=== PATIENT | male | born 1955 | race Caucasian/White ===

== ENCOUNTER 2024-03-06 13:50 | Emergency (ER) | payer OTHER, SELFPAY ==
[2024-03-06] VITALS (13 sets, daily range): BP systolic 129–185; BP diastolic 82–119; BMI 27.4
--- NOTE | 2024-03-06 15:38 | ED.GENMED ---
History of Present Illness
General
Chief Complaint: Blood Pressure Problem
Time Seen by Provider: 03/06/24 15:08
History of Present Illness
History of Present Illness:
69-year-old male with history of prior stroke and hypertension presents to the emergency department for evaluation of abnormal blood pressures. The patient was admitted to the hospital February 28 to due to a hypertensive urgency. In the
emergency department his blood pressure was noted to be greater than 200/130, he was treated with IV antihypertensives. During that time he was noted to have elevated troponin and the cardiology service consulted on the patient. He underwent a
stress test that was abnormal with an ejection fraction 51%, as well as an echocardiogram was grossly unremarkable. He then underwent a subsequent cardiac catheterization via right radial approach that found multivessel disease and was apparently
recommended to consult cardiothoracic surgery for possible surgical intervention however record review suggest that the patient declined this. At the time of discharge patient had 30 mL grams, hydrochlorothiazide 12.5 mg added to his regimen and
his carvedilol was decreased from 25 to 12.5 mg. Discharge summary from [facility] indicates that in addition to these 3 antihypertensives the patient is also taking 50 mg of losartan twice daily, 30 mg of nifedipine ER once daily. He
reportedly took the medications as prescribed for 2 days after hospital discharge but was noted to be markedly hypotensive in the 70s at home as well as very fatigued. No blood pressure medicines were given at home today. Patient offers no
complaints at this time.
Results from [facility] provided by fax scanned into the chart for completeness
Past History
Past History
ED Past Medical History: CVA and HTN
Social History
Tobacco: Non-smoker
Alcohol: None
Drug: None
Personal:
Living: with family
Review of Systems
Review of Systems
Allergies reviewed?: Yes
All Other Systems: ROS reviewed and negative except as documented in HPI and ROS
Phy Exam
Physical Exam
Physical Exam:
GEN: Well appearing, NAD, WDWN
HEENT: Oral mucosa moist, no scleral icterus
Cardiac: Regular rate and rhythm, no murmur
Lung: No respiratory distress, no tachypnea, lungs clear to auscultation bilaterally
MSK: No gross deformity or injuries
Skin: Good color, no pallor or jaundice, no rashes
Neuro: AO x3, moves all extremities freely
Psych: Calm, cooperative
Course
Orders/Labs/Results
Orders:
Orders
03/06/24 14:13
ECG [Electrocardiogram (*1)] Urgent
Reason for Study: Hypertension, Benign
EKG- Treatment ONCE
03/06/24 15:49
Complete Blood Count/No Diff Urgent
03/06/24 16:09
Carvedilol [Coreg] 12.5 mg PO NOW STA
Losartan [Cozaar] 50 mg PO NOW STA
03/06/24 16:20
ISOSORBIDE MONOnitrate ER [Imdur (Extended Release)] 30 mg PO NOW STA
03/06/24 16:33
Comprehensive Metabolic Panel Urgent
Abnormal Lab Results
03/06/24 03/06/24
15:49 16:33
MPV 11.4 H fL
(7.4-10.4)
BUN 29 H mg/dl
(9-20)
Glucose 147 H mg/dl
(70-99)
03/06/24 15:49
03/06/24 16:33
Vital Signs
Initial and Last Documented VS:
Initial Vital Signs
Temp Pulse Resp BP Pulse Ox
98.4 F 77 18 167/109 96
03/06/24 14:06 03/06/24 14:06 03/06/24 14:06 03/06/24 14:06 03/06/24 14:06
Last Documented Vital Signs
Temp Pulse Resp BP Pulse Ox
98.4 F 69 26 129/88 95
03/06/24 14:06 03/06/24 18:45 03/06/24 18:45 03/06/24 18:40 03/06/24 15:47
MDM/Problems Addressed
MDM/Problems Addressed:
69 yo male presents with blood pressure lability. He is hypertensive today on the basis of not taking his antihypertensives as prescribed. After recent hospital discharge she was supposed to be on 5 antihypertensives but was noted by his family to
have hypotension after taking all the meds. I reviewed records extensively provided by [facility]. It appears she was recommended to seek CT surgical evaluation due to multivessel coronary artery patient declined. At this time he
remains however given that he has no chest pain I do not see that there is any indication for admission for surgical evaluation. Regards to his blood pressure control he is asymptomatic evidence of hypertensive urgency. We will downtrend his
antihypertensives to avoid hypotension, I have recommended holding 12.5 mg of hydrochlorothiazide and decreasing his losartan to once daily as I feel the carvedilol and isosorbide will be beneficial given his known CAD. Outpatient CT surgical
follow-up is advised to review records from [facility] however strongly encouraged him to return to the emergency department with any ongoing chest pain
Comment
Comment:
EKG independently interpreted by me shows a normal sinus rhythm, lateral T wave inversions comparable to EKG from July of the same year. No acute ischemic changes
*Critical Care Note
Total Time (30-74mins, 75-104mins- exclusive of procedures): Not Applicable
ED Attending Note
-
Portions of this chart may have been created with voice recognition software.� Occasional wrong word or��sound alike� substitutions may have occurred due to the inherent limitations of voice recognition software.
Discharge Plan
Departure
Patient Disposition: Home (Routine Discharge)
Date of Disposition: 03/06/24
Time of Disposition: 18:12
Patient with high blood pressure during this ER visit?: No
Discharge Problem:
Elevated blood pressure reading
Instructions: High Blood Pressure (DC)
Prescriptions:
No Action
atorvastatin 80 mg tablet
80 mg PO HS
nitroglycerin 0.3 mg tablet, sublingual
0.3 mg sublingual [id number] PRN (Reason: chest pain)
levothyroxine 25 mcg tablet
25 mcg PO DAILY
tamsulosin 0.4 mg capsule
0.4 mg PO HS
ezetimibe 10 mg tablet
10 mg PO DAILY
nifedipine 30 mg Tablet Extended Release
30 mg PO DAILY Qty: 30 0RF
carvedilol 25 mg tablet
25 mg PO BID Qty: 60 0RF
Referrals:
Miguel Carmona MD [Family Provider] -
Amanuel Ibarra MD [Active] - Call in 1-3 days for appt
Activity Restrictions/Additional Instructions:
The medications you should be taking for blood pressure, based on your recent hospital discharge, are as follows:
Hydrochlorothiazide 12.5mg daily
Carvedilol 12.5mg daily
Nifedipine 30mg daily
Losartan 50mg twice daily
Isosorbide 30mg daily
Due to your heart problems, the isosorbide and carvedilol are very important
I am recommending you stop the hydrochlorothiazide and decreasing your losartan to ONCE DAILY until you follow up with your heart doctor, kidney doctor and/or primary care doctor
Please follow up with our cardiothoracic surgery team to discuss your heart catheterization results and possible surgery
If you develop chest pain, return to the ER immediately
Interventions
Interventions:
*Risk Screen - Suicide Last Done: 03/06/24 14:06
*General Assessment Last Done: 03/06/24 14:06
*Neglect/Abuse Screening Last Done: 03/06/24 14:06
ED- Fall Risk Assessment Last Done: 03/06/24 19:02
*ED COVID-19 Vaccine History Last Done: 03/06/24 15:46
*Nursing Disposition Last Done: 03/06/24 19:02
ED- Cardiac Assessment Last Done: 03/06/24 15:47
ED- Neurological Assessment Last Done: 03/06/24 15:47
ED- Pulmonary Assessment Last Done: 03/06/24 15:47
Discharge Date and Time
Print Language: MAURITANIAN
[2024-03-06 16:01] LABS: Hematocrit 40.8 % (39.0-52.0); Hemoglobin 14.1 g/dL (13.0-18.0); Mean Corp Hgb Conc. 34.6 g/dL (33.0-37.0); Mean Corpuscular Hgb 27.9 pg (27.0-31.0); Mean Corpuscular Volume 80.6 fL (80.0-94.0); Mean Platelet Volume 11.4 fL (7.4-10.4); Platelet Count 242 10^3/uL (130-400); Red Blood Cell Count 5.06 10^6/uL (4.70-6.10); Red Cell Dist. Width 14.4 % (11.5-14.5); White Blood Cell Count 7.5 10^3/uL (4.8-10.8)
[2024-03-06] MEDS: COZAAR 50 MG PO (16:19)
[2024-03-06] MEDS: COREG 12.5 MG PO (16:20)
[2024-03-06] MEDS: IMDUR (EXTENDED RELEASE) 30 MG PO (16:29)
[2024-03-06 17:19] LABS: ALT (SGPT) 15 U/L (0-50); AST (SGOT) 20 U/L (17-59); Albumin 4.2 g/dl (3.5-5.0); Alkaline Phosphatase 64 U/L (38-126); Blood Urea Nitrogen 29 mg/dl (9-20); Calcium 9.1 mg/dl (8.4-10.2); Carbon Dioxide 29 mmol/L (22-30); Chloride 100 mmol/L (98-107); Estimated Creatinine Clearance 65 ml/min; Glucose 147 mg/dl (70-99); Potassium 3.6 mmol/L (3.5-5.1); Sodium 137 mmol/L (135-145); Total Bilirubin 0.5 mg/dl (0.2-1.3); eGFR > 60.00
== END 2024-03-06 19:02 | disposition home or self-care (01) ==
LOC: EMR 13:50
PROVIDERS: Physician Assistant; EMERGENCY PHYSICIAN Emergency Medicine; FAMILY PHYSICIAN Internal Medicine
DX: I10 Essential (primary) hypertension (principal); I25.10 Atherosclerotic heart disease of native coronary artery without angina pectoris; Z79.899 Other long term (current) drug therapy; Z86.73 Personal history of transient ischemic attack (TIA), and cerebral infarction without residual deficits
CPT/HCPCS: 99283; 80053; 85027; 93005

== ENCOUNTER 2024-04-13 17:45 | Emergency (ER) | payer OTHER, SELFPAY ==
[2024-04-13 17:47] VITALS: BP 139/95
[2024-04-13 19:18] VITALS: BP 128/73
--- NOTE | 2024-04-13 19:35 | ED.GENMED ---
History of Present Illness
General
Chief Complaint: Fall
Source: patient and family (Son)
Exam Limitations: none
Time Seen by Provider: 04/13/24 19:26
Nursing documentation reviewed up to this point in time: agreed with
History of Present Illness
History of Present Illness:
69-year-old male with a past medical history of hypertension, hyperlipidemia, prior stroke who presents to the emergency room with his son for evaluation after a fall. Patient was getting out of bed last night to go to the bathroom and fell, landed
next to his bed. Unclear whether there was head strike but patient denies loss of consciousness. Mainly landed on his left ribs/flank. He has had bruising and pain in the left rib/flank since and son brought him into the emergency room to be
evaluated. He denies any headache or neck pain. Denies any shortness of breath. Denies any abdominal pain. Apparently complained of some mild left leg pain in triage but specifically denied this when asked by me. He does complain of some very
mild pain in the left wrist. He denies any other complaints. He is on aspirin but no other blood thinners on review of his medication list.
Past History
Past History
ED Past Medical History: CVA and HTN
Social History
Tobacco: Non-smoker
Alcohol: None
Drug: None
Personal:
Living: with family
Review of Systems
Review of Systems
All Other Systems: ROS reviewed and negative except as documented in HPI and ROS
Respiratory: Denies trouble breathing
Cardiac: Reports chest pain (Rib pain)
ABD/GI: Denies abdominal pain, nausea or vomiting
: Reports flank pain
Musculoskeletal: Reports joint pain; Denies neck pain
Neurological: Denies dizzy, headache, weakness or numbness
Phy Exam
Physical Exam
Physical Exam:
General: Awake, alert, oriented x3 with a GCS of 15; no acute distress
Head: Normocephalic, atraumatic
Eyes: Conjunctiva normal, pupils equal round and reactive to light bilaterally
Throat: Airway intact, handling secretions
Neck: Trachea midline, no cervical spine tenderness
Back: No tenderness in the midline thoracic or lumbar spine; large area of ecchymosis in the left flank right around the costovertebral angle which is tender to the touch
Lungs: Clear to auscultation bilaterally, no wheezing, rales, rhonchi
Heart: Regular rate; left posterior lateral rib tenderness in the area of flank bruising
Abd: Soft, non distended, nontender with no abdominal bruising
Neuro: No gross deficits
Skin: Bruise on the flank, no abrasions or lacerations noted
Extremities: Atraumatic, no snuffbox tenderness in the left wrist, mild tenderness of the dorsum of the distal radius but full range of motion of the wrist with minimal pain; no left elbow or shoulder tenderness and full range of motion in these
joints; right upper extremity and bilateral lower extremities atraumatic and full range of motion with no pain; good pulses in all extremities specifically strong left radial pulse
Scores
Heart Failure Risk
Heart Failure Risk Score: Not Applicable
Heart Score for Chest Pain Patients
STEMI patient?: Not applicable
Withdrawal Assessment of Alcohol
Withdrawal Assessment Completed?: Not applicable
Course
Orders/Labs/Results
Orders:
Orders
04/13/24 19:27
CT Cervical Spine W/o Iv Contr Urgent
Comment:
Reason For Exam: fall with headstrike
CT Head W/o Iv Contrast Urgent
Comment:
Reason For Exam: fall with headstrike
04/13/24 19:34
CT Chest/abd/pel W Iv Cont Urgent
Comment:
Reason For Exam: left flank injury s/p fall; bruising left flank
04/13/24 19:35
CR Wrist - Left Min 3 Views Urgent
Comment:
Reason For Exam: wrist pain s/p fall
04/13/24 20:12
Complete Blood Count/With Diff Urgent
Comprehensive Metabolic Panel Urgent
Abnormal Lab Results
04/13/24
20:12
RDW 14.7 H %
(11.5-14.5)
MPV 10.6 H fL
(7.4-10.4)
04/13/24 20:12
04/13/24 20:12
Vital Signs
Initial and Last Documented VS:
Initial Vital Signs
Temp Pulse Resp BP Pulse Ox
36.8 C 74 16 139/95 98
04/13/24 17:47 04/13/24 17:47 04/13/24 17:47 04/13/24 17:47 04/13/24 17:47
Last Documented Vital Signs
Temp Pulse Resp BP Pulse Ox
36.8 C 69 15 122/107 97
04/13/24 17:47 04/13/24 22:15 04/13/24 22:15 04/13/24 22:07 04/13/24 22:15
MDM/Problems Addressed
Differential Diagnosis Includes:
Rib fracture, retroperitoneal hemorrhage, flank contusion/hematoma
MDM/Problems Addressed:
69-year-old male presents for evaluation of left flank pain and bruising since a mechanical fall out of bed last night. Unsure of head trauma but no loss of consciousness. Mild left wrist pain no other complaints--apparently complained of some leg
pain in triage but denies this to me and was ambulatory in the ED with no apparent pain. He is on aspirin but no other blood thinners. Vital signs are normal. Exam as above. Will check CT of the head and cervical spine. Check CT
chest/abdomen/pelvis. Check x-ray of the wrist. Reassess after the above.
Labs were unremarkable including a normal hemoglobin. CT head and cervical spine negative. CT chest/abdomen/pelvis shows left flank contusion but no broken ribs no acute posttraumatic injuries. X-ray read shows no fracture. Incidental findings
noted on CT he will follow-up with his primary doctor. Stable for discharge. All questions answered.
*Critical Care Note
Total Time (30-74mins, 75-104mins- exclusive of procedures): Not Applicable
ED Attending Note
-
Portions of this chart may have been created with voice recognition software.� Occasional wrong word or��sound alike� substitutions may have occurred due to the inherent limitations of voice recognition software.
Discharge Plan
Departure
Patient Disposition: Home (Routine Discharge)
Date of Disposition: 04/13/24
Time of Disposition: 22:16
Patient with high blood pressure during this ER visit?: Yes
Discharge Problem:
Contusion of flank, Contusion of left wrist
Instructions: Contusion (DC)
Prescriptions:
No Action
atorvastatin 80 mg tablet
80 mg PO HS
nitroglycerin 0.3 mg tablet, sublingual
0.3 mg sublingual [id number] PRN (Reason: chest pain)
levothyroxine 25 mcg tablet
25 mcg PO DAILY
tamsulosin 0.4 mg capsule
0.4 mg PO HS
ezetimibe 10 mg tablet
10 mg PO DAILY
nifedipine 30 mg Tablet Extended Release
30 mg PO DAILY Qty: 30 0RF
carvedilol 25 mg tablet
25 mg PO BID Qty: 60 0RF
Referrals:
Miguel Carmona MD [Family Provider] - Follow up in 5-7 days
Activity Restrictions/Additional Instructions:
You were seen in the emergency room after a fall. Fortunately, you had no serious injuries on your evaluation in the emergency room. You are found to have some incidental findings on your CT scan which you should discuss with your primary doctor
for further assessment.
Thank you for visiting the Emergency Department at [facility].
1. Please schedule a follow up appointment as directed. Call first thing tomorrow morning to make an appointment.
2. If indicated, please take your medications as instructed and indicated on discharge paperwork.
3. If any of your symptoms do not improve, or persist, or become more severe within 6-12 hours, please return to the emergency department for further care.
4. Please return to the emergency department if you develop a headache, neck pain/stiffness, fever greater than 100.4F, chest pain, shortness of breath, persistent nausea, vomiting, slurred speech, difficulty walking, numbness/tingling, weakness,
signs of infection or any other symptoms that are worrisome to you.
Please call [phone] if you have any questions.
Interventions
Interventions:
*Risk Screen - Suicide Last Done: 04/13/24 17:47
*General Assessment Last Done: 04/13/24 17:47
*Neglect/Abuse Screening Last Done: 04/13/24 17:47
ED- Fall Risk Assessment Last Done: 04/13/24 22:29
*ED COVID-19 Vaccine History Last Done: 04/13/24 22:29
*Nursing Disposition Last Done: 04/13/24 22:29
ED- Cardiac Assessment Last Done: 04/13/24 19:45
ED-Musculoskeletal Assessment Last Done: 04/13/24 19:45
ED- Neurological Assessment Last Done: 04/13/24 19:45
ED- Pulmonary Assessment Last Done: 04/13/24 19:45
ED-Skin Assessment Last Done: 04/13/24 19:45
Discharge Date and Time
Discharge Date/Time: 04/13/24 22:30
Print Language: GREENLANDIC
[2024-04-13 19:38] VITALS: BP 138/97
[2024-04-13 20:07] VITALS: BP 137/98
[2024-04-13 20:17] LABS: % Basophils 0.8 % (0-2); % Eosinophils 5.6 % (0-6); % Immature Granulocytes 0.2 % (0-0.5); % Lymphocytes 30.3 % (20.5-51.1); % Monocytes 8.3 % (1.7-9.3); % Neutrophils 54.8 % (42.2-75.2); Absolute Basophils 0.1 10^3/uL (0-0.2); Absolute Eosinophils 0.4 10^3/uL (0-0.7); Absolute Monocytes 0.6 10^3/uL (0.1-0.6); Absolute Neutrophils 3.6 10^3/uL (1.4-6.5); Hematocrit 41.2 % (39.0-52.0); Hemoglobin 13.8 g/dL (13.0-18.0); Mean Corp Hgb Conc. 33.5 g/dL (33.0-37.0); Mean Corpuscular Hgb 27.5 pg (27.0-31.0); Mean Corpuscular Volume 82.1 fL (80.0-94.0); Mean Platelet Volume 10.6 fL (7.4-10.4); Nucleated Red Blood Cells % 0 % (-); Platelet Count 236 10^3/uL (130-400); Red Blood Cell Count 5.02 10^6/uL (4.70-6.10); Red Cell Dist. Width 14.7 % (11.5-14.5); White Blood Cell Count 6.6 10^3/uL (4.8-10.8)
[2024-04-13 20:36] LABS: ALT (SGPT) 18 U/L (0-50); AST (SGOT) 20 U/L (17-59); Albumin 4.2 g/dl (3.5-5.0); Alkaline Phosphatase 57 U/L (38-126); Blood Urea Nitrogen 18 mg/dl (9-20); Calcium 9.1 mg/dl (8.4-10.2); Carbon Dioxide 25 mmol/L (22-30); Chloride 104 mmol/L (98-107); Glucose 83 mg/dl (70-99); Potassium 4.8 mmol/L (3.5-5.1); Sodium 141 mmol/L (135-145); Total Bilirubin 0.6 mg/dl (0.2-1.3); eGFR > 60.00
[2024-04-13 21:34] VITALS: BP 154/104
[2024-04-13 22:07] VITALS: BP 122/107
== END 2024-04-13 22:30 | disposition home or self-care (01) ==
LOC: EMR 17:45
PROVIDERS: EMERGENCY PHYSICIAN Emergency Medicine; FAMILY PHYSICIAN Internal Medicine
DX: S20.212A Contusion of left front wall of thorax, initial encounter (principal); S30.1XXA Contusion of abdominal wall, initial encounter; S60.212A Contusion of left wrist, initial encounter; W19.XXXA Unspecified fall, initial encounter; I11.9 Hypertensive heart disease without heart failure; Z86.73 Personal history of transient ischemic attack (TIA), and cerebral infarction without residual deficits
CPT/HCPCS: 99284; 70450; 71260; 72125; 73110; 74177; 80053; 85025; Q9967

== ENCOUNTER 2024-08-20 13:20 | Emergency (ER) | payer OTHER, SELFPAY ==
[2024-08-20 13:31] VITALS: BP 104/69
[2024-08-20 13:58] LABS: Urine Albumin Negative (Neg - Trace); Urine Bilirubin Negative (Negative); Urine Character Clear (Clear); Urine Color Yellow; Urine Glucose Negative (Negative); Urine Ketone Negative (Negative); Urine Leukocyte Negative (Negative); Urine Nitrite Negative (Negative); Urine Occult Blood Negative (Negative); Urine Urobilinogen Negative (Neg - 1+)
[2024-08-20 14:00] LABS: % Basophils 0.5 % (0-2); % Eosinophils 5.1 % (0-6); % Immature Granulocytes 0.2 % (0-0.5); % Lymphocytes 26.6 % (20.5-51.1); % Monocytes 5.9 % (1.7-9.3); % Neutrophils 61.7 % (42.2-75.2); Absolute Eosinophils 0.3 10^3/uL (0-0.7); Absolute Lymphocytes 1.7 10^3/uL (1.2-3.4); Absolute Monocytes 0.4 10^3/uL (0.1-0.6); Hematocrit 41.5 % (39.0-52.0); Hemoglobin 13.9 g/dL (13.0-18.0); Mean Corp Hgb Conc. 33.5 g/dL (33.0-37.0); Mean Corpuscular Hgb 28.3 pg (27.0-31.0); Mean Corpuscular Volume 84.5 fL (80.0-94.0); Mean Platelet Volume 10.4 fL (7.4-10.4); Nucleated Red Blood Cells % 0 % (-); Platelet Count 249 10^3/uL (130-400); Red Blood Cell Count 4.91 10^6/uL (4.70-6.10); Red Cell Dist. Width 13.9 % (11.5-14.5); White Blood Cell Count 6.5 10^3/uL (4.8-10.8)
[2024-08-20 14:14] LABS: ALT (SGPT) 21 U/L (0-50); AST (SGOT) 22 U/L (17-59); Albumin 5.3 g/dl (3.5-5.0); Alkaline Phosphatase 64 U/L (38-126); Blood Urea Nitrogen 15 mg/dl (9-20); Calcium 9.3 mg/dl (8.4-10.2); Carbon Dioxide 23 mmol/L (22-30); Chloride 101 mmol/L (98-107); Glucose 105 mg/dl (70-99); Lipase 174 U/L (23-300); Potassium 4.5 mmol/L (3.5-5.1); Sodium 137 mmol/L (135-145); Total Bilirubin 1.5 mg/dl (0.2-1.3); Total Protein 8.5 g/dl (6.3-8.2); eGFR > 60.00
--- NOTE | 2024-08-20 15:39 | ED.GENMED ---
History of Present Illness
General
Chief Complaint: Abdominal Pain
Source: patient
Exam Limitations: none
Time Seen by Provider: 08/20/24 15:29
Nursing documentation reviewed up to this point in time: agreed with
History of Present Illness
History of Present Illness:
Patient to eD with complaint of lower abd. pain x 2 days. Denies fever/chills, n/v/d. Last BM 2 days ago, normal. No prior history of same. Pain does not radiate. SOn states patient is urinating frequently. Brought to ED by son for eval.
Past History
Past History
ED Past Medical History: CVA and HTN
Social History
Tobacco: Non-smoker
Alcohol: None
Drug: None
Personal:
Living: with family
Review of Systems
Review of Systems
Allergies reviewed?: Yes
All Other Systems: ROS reviewed and negative except as documented in HPI and ROS
Constitutional: Reports no symptoms
EENT: Reports no symptoms
Respiratory: Reports no symptoms
Cardiac: Reports no symptoms
ABD/GI: Reports abdominal pain (lower abd. pain)
: Reports frequency
Musculoskeletal: Reports no symptoms
Skin: Reports no symptoms
Neurological: Reports no symptoms
Psychiatric: Reports no symptoms
Phy Exam
General Physical Exam
General Presentation: well appearing and no apparent distress
General age: appears stated age
General Skin: warm and dry
General Habitus: normal
General Mental: alert
General Hydration: appears well hydrated
Pulmonary Exam
Pulmonary Exam: no respiratory distress and chest non tender
Gastrointestinal Exam
Gastrointestinal Exam: normal bowel sounds, soft, no organomegaly, non distended and no cva tenderness
Palpation: left upper quadrant: No tenderness, left lower quadrant: Moderate tenderness, right upper quadrant: No tenderness and right lower quadrant: Mild tenderness
Musculoskeletal Exam
Musculoskeletal Exam: full ROM and neuro vasc intact
Skin Exam
Skin Exam: normal color, warm/dry and no rash
Psychiatric Exam
Psychiatric Exam: normal mood/affect
Course
Orders/Labs/Results
Orders:
Orders
08/20/24 13:42
Complete Blood Count/With Diff Urgent
Comprehensive Metabolic Panel Urgent
Lipase Urgent
08/20/24 13:49
Urine Culture Reflexed from UA [Urinalysis Reflex To Culture] Urgent
Date Specimen was Collected: 08/20/24
Time Specimen was Collected: 13:33
08/20/24 15:39
CT Abd/pel W Iv And Oral Contr Urgent
Comment:
Reason For Exam: lower abd. pain.
Bladder Scan- Treatment ONCE
Iohexol [Omnipaque] See Protocol PO NOW STA
08/20/24 17:24
Roblero Placement- Treatment ONCE
Reason for insertion: Acute Retention
Abnormal Lab Results
08/20/24
13:42
Glucose 105 H mg/dl
(70-99)
Total Bilirubin 1.5 H mg/dl
(0.2-1.3)
Total Protein 8.5 H g/dl
(6.3-8.2)
Albumin 5.3 H g/dl
(3.5-5.0)
08/20/24 13:42
08/20/24 13:42
Vital Signs
Initial and Last Documented VS:
Initial Vital Signs
Temp Pulse Resp BP Pulse Ox
98.3 F 60 18 104/69 96
08/20/24 13:31 08/20/24 13:31 08/20/24 13:08/20/24 13:31 08/20/24 13:31
Last Documented Vital Signs
Temp Pulse Resp BP Pulse Ox
98.3 F 60 18 137/94 95
08/20/24 13:31 08/20/24 13:31 08/20/24 13:31 08/20/24 16:18 08/20/24 18:25
*Radiology
Radiology exam reviewed: radiology read reviewed
*Pulse Oximetry
Patient hypoxic: no
*Critical Care Note
Total Time (30-74mins, 75-104mins- exclusive of procedures): Not Applicable
Update Note
Update Note:
Bladder scan 693 post void. UA without evidence of UTI. Roblero catheter placed by RN, drained 1200cc. UA sent, no evidence of infection. Labs, CT report reviewed with patient and son. Patient will be discharged home tonight with roblero, followup
with urology for further evaluation of urinary retention. Patient and son given instructions on s/s to return to ED and they are agreeable to plan.
ED Attending Note
-
Portions of this chart may have been created with voice recognition software.� Occasional wrong word or��sound alike� substitutions may have occurred due to the inherent limitations of voice recognition software.
Discharge Plan
Departure
Patient Disposition: Home (Routine Discharge)
Date of Disposition: 08/20/24
Time of Disposition: 19:08
Patient with high blood pressure during this ER visit?: No
Condition: Good
Covid-19: Not Applicable
Discharge Problem:
Acute urinary retention
Instructions: How to Care for Your Roblero Catheter, Male, Urinary retention - Discharge instructions
Prescriptions:
No Action
atorvastatin 80 mg tablet
80 mg PO HS
nitroglycerin 0.3 mg tablet, sublingual
0.3 mg sublingual [id number] PRN (Reason: chest pain)
levothyroxine 25 mcg tablet
25 mcg PO DAILY
tamsulosin 0.4 mg capsule
0.4 mg PO HS
ezetimibe 10 mg tablet
10 mg PO DAILY
nifedipine 30 mg Tablet Extended Release
30 mg PO DAILY Qty: 30 0RF
carvedilol 25 mg tablet
25 mg PO BID Qty: 60 0RF
Referrals:
Horvath,Ojrge B., MD [Active] - Call in 1-3 days for appt
Miguel Carmona MD [Family Provider] -
Interventions
Interventions:
*Risk Screen - Suicide Last Done: 08/20/24 16:20
*General Assessment Last Done: 08/20/24 13:31
*Neglect/Abuse Screening Last Done: 08/20/24 16:20
ED- Fall Risk Assessment Last Done: 08/20/24 16:20
*ED COVID-19 Vaccine History Last Done: 08/20/24 16:20
*Nursing Disposition Last Done: 08/20/24 19:37
IP-Phbqel-Orquxlludn Assessment Last Done: 08/20/24 16:20
Discharge Date and Time
Discharge Date/Time: 08/20/24 19:37
Print Language: BULGARIAN
[2024-08-20 16:17] VITALS: BMI 27.7
[2024-08-20 16:18] VITALS: BP 137/94
[2024-08-20] MEDS: OMNIPAQUE 50 ML PO (16:18)
== END 2024-08-20 19:37 | disposition home or self-care (01) ==
LOC: EMR 13:20
PROVIDERS: Emergency Medicine; EMERGENCY PHYSICIAN Student in an Organized Health Care Education/Training Program; FAMILY PHYSICIAN Internal Medicine
DX: R33.9 Retention of urine, unspecified (principal); R10.9 Unspecified abdominal pain; I10 Essential (primary) hypertension; I25.10 Atherosclerotic heart disease of native coronary artery without angina pectoris; Z86.73 Personal history of transient ischemic attack (TIA), and cerebral infarction without residual deficits
CPT/HCPCS: 99284; 51702; 74177; 80053; 81003; 83690; 85025; Q9967

== ENCOUNTER 2024-08-21 08:41 | Emergency (ER) | payer OTHER, SELFPAY ==
[2024-08-21 08:45] VITALS: BP 106/75
--- NOTE | 2024-08-21 11:14 | ED.GENMED ---
History of Present Illness
General
Chief Complaint: Urinary Symptoms
Time Seen by Provider: 08/21/24 11:04
History of Present Illness
History of Present Illness:
Patient is a 69-year-old man presenting to the emergency department with concern for hematuria. Per chart review patient was seen here yesterday for urinary retention had a Díaz catheter placed. This morning there was significant blood in the bag
so they came in for further evaluation. He is not on a blood thinner. He has been urinating since then. He denies any abdominal pain.
Past History
Past History
ED Past Medical History: CVA and HTN
Social History
Tobacco: Non-smoker
Alcohol: None
Drug: None
Personal:
Living: with family
Phy Exam
Physical Exam
Physical Exam:
GENERAL: in no acute distress
HEENT: normocephalic, extraocular movements intact, moist oral mucosa
NECK: normal inspection
RESPIRATORY: no respiratory distress, clear to auscultation bilaterally
CARDIOVASCULAR: regular rate and rhythm
ABDOMEN/: soft, non-distended, non-tender to palpation, no rebound or guarding, hematuria in Díaz bag. No clots.
EXTREMITIES: non-tender, no edema/swelling
NEUROLOGIC: awake and alert, moves all extremities
SKIN: warm
Course
Vital Signs
Initial and Last Documented VS:
Initial Vital Signs
Temp Pulse Resp BP Pulse Ox
97.5 F 71 18 106/75 98
08/21/24 08:45 08/21/24 08:45 08/21/24 08:45 08/21/24 08:45 08/21/24 08:45
Last Documented Vital Signs
Temp Pulse Resp BP Pulse Ox
97.5 F 71 18 106/75 98
08/21/24 08:45 08/21/24 08:45 08/21/24 08:45 08/21/24 08:45 08/21/24 08:45
MDM/Problems Addressed
Differential Diagnosis Includes:
Patient is a 69-year-old man with recently placed Díaz catheter presenting to the emergency department with hematuria. Vitals are unremarkable. On exam patient does have hematuria in the Díaz bag with no clots. He is still urinating without any
suprapubic pain. Will check bladder scan to make sure there is not a clot blocking and then manually irrigate the Díaz.
*Critical Care Note
Total Time (30-74mins, 75-104mins- exclusive of procedures): Not Applicable
Update Note
Update Note:
Blood scan is 0. We did irrigate the Díaz catheter and is now draining light pink. Will discharge patient. Patient's son will call urology. Strict return precautions given.
ED Attending Note
-
Portions of this chart may have been created with voice recognition software.� Occasional wrong word or��sound alike� substitutions may have occurred due to the inherent limitations of voice recognition software.
Discharge Plan
Departure
Patient Disposition: Home (Routine Discharge)
Date of Disposition: 08/21/24
Time of Disposition: 11:47
Patient with high blood pressure during this ER visit?: No
Discharge Problem:
Hematuria
Instructions: Blood in the Urine (Hematuria), Adult (DC)
Prescriptions:
No Action
atorvastatin 80 mg tablet
80 mg PO HS
nitroglycerin 0.3 mg tablet, sublingual
0.3 mg sublingual [id number] PRN (Reason: chest pain)
levothyroxine 25 mcg tablet
25 mcg PO DAILY
tamsulosin 0.4 mg capsule
0.4 mg PO HS
ezetimibe 10 mg tablet
10 mg PO DAILY
nifedipine 30 mg Tablet Extended Release
30 mg PO DAILY Qty: 30 0RF
carvedilol 25 mg tablet
25 mg PO BID Qty: 60 0RF
Referrals:
Iglesia Ochoa MD [Active] -
Miguel Carmona MD [Family Provider] -
Interventions
Interventions:
*Risk Screen - Suicide Last Done: 08/21/24 08:49
*General Assessment Last Done: 08/21/24 08:49
*Neglect/Abuse Screening Last Done: 08/21/24 08:49
Discharge Date and Time
Print Language: WOLOF
== END 2024-08-21 12:19 | disposition home or self-care (01) ==
LOC: EMR 08:41
PROVIDERS: EMERGENCY PHYSICIAN Student in an Organized Health Care Education/Training Program; FAMILY PHYSICIAN Internal Medicine
DX: R31.9 Hematuria, unspecified (principal); I10 Essential (primary) hypertension; Z86.73 Personal history of transient ischemic attack (TIA), and cerebral infarction without residual deficits
CPT/HCPCS: 99282

== ENCOUNTER 2025-03-07 03:23 | Emergency (ER) | payer OTHER, SELFPAY ==
[2025-03-07 02:00] VITALS: BP 137/92
[2025-03-07 03:00] VITALS: BP 141/90
--- NOTE | 2025-03-07 03:33 | DOWNTIME ---
There was a [employer] Embedded Case Manager Downtime on 03/07/2025 from 0100 to 03/07/2025 at 0235. Downtime documentation of patient's care, including medication administrations, has been reconciled in the electronic record per guidelines. Refer to the
patient's paper chart under the miscellaneous tab to see printed paper medication records and downtime forms.
[2025-03-07 03:38] LABS: Urine Character Slightly Cloudy (Clear)
[2025-03-07 03:40] LABS: Urine Red Blood Cell 16-20 /HPF (0-2)
[2025-03-07 03:41] LABS: Urine White Cell 40-50 /HPF (0-5)
[2025-03-07 03:45] LABS: Urine Squamous Cell 0-2 /LPF (Few)
[2025-03-07 03:59] VITALS: BMI 28.5
--- NOTE | 2025-03-07 04:14 | ED.GENMED ---
History of Present Illness
General
Chief Complaint: Male Genito-Urinary Symptoms
Source: patient
Exam Limitations: none
Nursing documentation reviewed up to this point in time: agreed with
History of Present Illness
History of Present Illness:
Note:
CHIEF COMPLAINT(S)
Bladder pain and urinary retention.
HISTORY OF PRESENT ILLNESS
A 70-year-old male presents with bladder pain and urinary retention. According to the discussion, the patient experienced onset of pain this morning. The pain was managed initially at 10:00 AM with two doses of an [id number] medication,
ibuprofen at home. Despite management, the pain recurred within two hours, prompting administration of another dose, followed by seeking medical attention at the facility. The patient has a urethral catheter in place for urinary retention due to
inability to void properly ('urine not coming up') for approximately four months. It is noted that the urine output from the catheter appears abnormal, with the caregiver stating, 'The urine inside it doesn't look so good.' Current catheter
placement was done on the of the month. The patient, post-treatment with ibuprofen, appears stable and quiet.
PAST MEDICAL AND SURIGICAL HISTORY
History of hypertension, urinary retention, and prostate issues.
ADDITIONAL HISTORY OBTAINED FROM SOURCES OTHER THAN THE PATIENT
Per the caregiver, the fully catheter was placed on the , managed previously in home care. The urine output reportedly stopped at home, but upon arrival, started flowing again.
CHRONIC MEDICAL CONDITIONS SIGNIFICANTLY AFFECTING CARE
Hypertension
Urinary retention
Prostate issues
PLANS
1. Conduct a urinalysis to assess the quality and content of the urine.
DIFFERENTIAL DIAGNOSIS
The Differential Diagnosis includes, in no particular order and is not limited to:
1. Urinary tract infection
2. Catheter-associated urinary tract infection
3. Prostate enlargement
4. Bladder stones
5. Acute prostatitis
6. Interstitial cystitis
7. Bladder spasm
8. Pyelonephritis
9. Hematuria due to irritation
10. Non-infectious cystitis
PHYSICAL EXAM
General: Alert, no acute distress.
Skin: Warm, dry.
Head: Normocephalic, atraumatic.
Neck: Supple, trachea midline.
Eye, ears, nose, mouth, and throat: Oral mucosa moist.
Cardiovascular: Normal peripheral perfusion, no edema.
Respiratory: Respirations are non-labored.
Gastrointestinal: Abdomen nondistended. roblero catheter in place. Bladder US showed 500cc urine
Back: Normal range of motion, normal alignment.
Musculoskeletal: Normal range of motion, normal strength.
Neurological: Alert and oriented to person, place, time, and situation, no focal neurological deficit observed.
Psychiatric: Cooperative, appropriate mood & affect.
Disposition:
SUMMARY OF ENCOUNTER
The patient, a 70-year-old male with a history of hypertension, urinary retention, and prostate issues, presented to the emergency department with bladder pain and urinary retention. He experienced the onset of pain this morning and managed it
initially with [id number] ibuprofen. Despite this, the pain recurred, prompting further medication and a visit to the emergency department. He has a urethral catheter in place due to chronic urinary retention and reports of abnormal urine
output. A urinalysis was conducted as part of the assessment.
ASSESSMENT
The patient is likely experiencing a urinary tract infection, potentially catheter-associated, given the presence of urinary retention and abnormal urine output. Other considerations include prostate enlargement, bladder stones, or non-infectious
cystitis.
EMERGENCY TREATMENTS ADMINISTERED
Cefalexin was administered as antimicrobial therapy for suspected UTI.
PLAN
A continuation of cefalexin for treating the suspected urinary tract infection, with monitoring of symptoms. Recommend close follow-up with urology to reassess catheter management and evaluate chronic urinary retention issues.
MEDICATION RECONCILIATION
Administered cefalexin (Keflex) for UTI.
MEDICAL DECISION MAKING
- Number and Complexity of Problems Addressed: Chronic conditions affecting care include hypertension, urinary retention, and prostate issues. Differential diagnosis includes urinary tract infection, catheter-associated urinary tract infection,
prostate enlargement, bladder stones, acute prostatitis, interstitial cystitis, bladder spasm, pyelonephritis, hematuria due to irritation, and non-infectious cystitis.
- Data:
Category 1
Clinical information was obtained from an independent historian (caregiver detailed catheter management and urine output issues).
Category 2
My independent review of the urinalysis is consistent with the suspected urinary tract infection.
- Risk: Consideration of Admission/Observation: Escalation of care including admission/observation was considered, but it is felt that the patient is safe for outpatient management with close follow-up.
DIAGNOSIS
- Urinary Tract Infection (N39.0)
- Chronic Urinary Retention (R33.9)
Past History
Past History
ED Past Medical History: CVA and HTN
Social History
Tobacco: Non-smoker
Alcohol: None
Drug: None
Personal:
Living: with family
Phy Exam
Physical Exam
Physical Exam:
.
Course
Orders/Labs/Results
Orders:
Orders
03/07/25 01:53
Urinalysis Urgent
Urine Microscopic Urgent
Urine Culture Urgent
YAMIL Source: U
Specimen Description:
03/07/25 03:49
CefTRIAXone [Rocephin] 1,000 mg IV NOW STA
03/07/25 04:05
Cephalexin Monohydrate [Keflex] 500 mg PO NOW STA
Abnormal Lab Results
03/07/25
01:53
Urine Occult Blood 4+ A
(Negative)
Ur Leukocyte Esterase 3+ A
(Negative)
Urine RBC 16-20 A /HPF
(0-2)
Urine WBC 40-50 A /HPF
(0-5)
Urine Bacteria Many A
(Negative)
Urine Albumin 2+ A
(Neg - Trace)
Vital Signs
Initial and Last Documented VS:
Initial Vital Signs
Pulse Resp BP Pulse Ox
66 18 137/92 99
03/07/25 02:00 03/07/25 02:00 03/07/25 02:00 03/07/25 02:00
Last Documented Vital Signs
Pulse Resp BP Pulse Ox
67 26 141/90 96
03/07/25 03:50 03/07/25 03:50 03/07/25 03:00 03/07/25 04:14
*Pulse Oximetry
SaO2: 96
Oxygen Mode of Delivery: Room air
Patient hypoxic: no
*Critical Care Note
Total Time (30-74mins, 75-104mins- exclusive of procedures): Not Applicable
ED Attending Note
-
Portions of this chart may have been created with voice recognition software.� Occasional wrong word or��sound alike� substitutions may have occurred due to the inherent limitations of voice recognition software.
Discharge Plan
Departure
Patient Disposition: Home (Routine Discharge)
Date of Disposition: 03/07/25
Time of Disposition: 04:45
Patient with high blood pressure during this ER visit?: Yes
Condition: Good
Discharge Problem:
Acute UTI, Chronic indwelling Roblero catheter
Instructions: How to Care for Your Roblero Catheter, Male, Urinary tract infection in adults - ED discharge instructions
Prescriptions:
No Action
atorvastatin 80 mg tablet
80 mg PO HS
nitroglycerin 0.3 mg tablet, sublingual
0.3 mg sublingual [id number] PRN (Reason: chest pain)
levothyroxine 25 mcg tablet
25 mcg PO DAILY
tamsulosin 0.4 mg capsule
0.4 mg PO HS
ezetimibe 10 mg tablet
10 mg PO DAILY
nifedipine 30 mg Tablet Extended Release
30 mg PO DAILY Qty: 30 0RF
carvedilol 25 mg tablet
25 mg PO BID Qty: 60 0RF
Referrals:
NONE,* [Family Provider, Internal Medicine]
Javan Mayorga MD [Active, Urology]
Activity Restrictions/Additional Instructions:
Thank You for choosing [facility].
It was a pleasure meeting you and taking part in your care. We hope for your continued healing and wellness.
Please read discharge instructions in their entirety. However, they are for general education and may not describe your exact diagnosis at discharge. Information on your ER visit and medical conditions were discussed with you along with appropriate
follow up information...
If indicated, please take your medications as instructed and indicated on discharge paperwork.
Please schedule a follow up appointment as directed. Call to schedule an appointment
Please return to the emergency department with ANY change in, persisting, or worsening of symptoms. If any of your symptoms do not improve, or persist, or become more severe within 6-12 hours, please return to the emergency department for further
care.
Please return to the emergency department if you develop a headache, neck pain/stiffness, fever greater than 100.4F, chest pain, shortness of breath, persistent nausea, vomiting, slurred speech, difficulty walking, numbness/tingling, weakness, signs
of infection or any other symptoms that are worrisome to you.
If you have any questions or concerns please do not hesitate to call the Hospital at or E-mail me directly at [email or web address]
Discharge Date and Time
Print Language: GRENADIAN
[2025-03-07 05:00] VITALS: BP 118/79
[2025-03-07] MEDS: KEFLEX 500 MG PO (05:00)
[2025-03-07 06:22] VITALS: BP 115/82
== END 2025-03-07 06:36 | disposition home or self-care (01) ==
LOC: EMR 03:23
PROVIDERS: EMERGENCY PHYSICIAN Student in an Organized Health Care Education/Training Program
DX: N39.0 Urinary tract infection, site not specified (principal); I10 Essential (primary) hypertension; Z86.73 Personal history of transient ischemic attack (TIA), and cerebral infarction without residual deficits
CPT/HCPCS: 99282; 96374; 81003; 81015; 87086

== ENCOUNTER 2025-05-30 10:26 | Emergency (ER) | payer OTHER, SELFPAY ==
[2025-05-30 10:28] VITALS: BP 106/74
--- NOTE | 2025-05-30 10:52 | ED.GENMED ---
History of Present Illness
General
Chief Complaint: Male Genito-Urinary Symptoms
Time Seen by Provider: 05/30/25 10:43
History of Present Illness
History of Present Illness:
Patient is a 70-year-old man presenting to the emergency department with pain from his catheter. Per patient's son he had catheter placed on May 21. This morning he woke up with some mild pubic pain. Patient send been ibuprofen which relieved
the pain. Patient son then brought him in here for further evaluation as last time this happened he had a urinary tract infection. No fevers chills. No nausea vomiting. Mild suprapubic pain. The catheter has been draining well. No blood.
Past History
Past History
ED Past Medical History: CVA and HTN
Social History
Tobacco: Non-smoker
Alcohol: None
Drug: None
Personal:
Living: with family
Phy Exam
Physical Exam
Physical Exam:
GENERAL: in no acute distress
HEENT: normocephalic, extraocular movements intact, moist oral mucosa
NECK: normal inspection
RESPIRATORY: no respiratory distress, clear to auscultation bilaterally
CARDIOVASCULAR: regular rate and rhythm
ABDOMEN/: soft, non-distended, non-tender to palpation, no rebound or guarding, Díaz catheter draining light yellow urine
EXTREMITIES: non-tender, no edema/swelling
NEUROLOGIC: awake and alert, moves all extremities
SKIN: warm
Course
Orders/Labs/Results
Orders:
Orders
05/30/25 10:51
Bladder Scan- Treatment ONCE
05/30/25 11:09
Urinalysis Reflex To Culture Urgent
Date Specimen was Collected: 05/30/25
Time Specimen was Collected: 10:58
Urine Microscopic Reflex Cult Urgent
Urine Culture Urgent
YAMIL Source: U
Specimen Description:
Obtained by: Random
Date Specimen was Collected: 05/30/25
Time Specimen was Collected: 10:58
Abnormal Lab Results
05/30/25
11:09
Ur Occult Blood Reflex 3+ A
(Negative)
Leukocyte Esterase Rfl 3+ A
(Negative)
Urine RBC 3-6 A /HPF
(0-2)
Urine WBC (Reflex) 16-20 A /HPF
(0-5)
Urine Bacteria (Reflex) Moderate A
(Negative)
Urine Albumin (Reflex) 3+ A
(Neg - Trace)
Vital Signs
Initial and Last Documented VS:
Initial Vital Signs
Temp Pulse Resp BP Pulse Ox
97.9 F 92 16 106/74 95
05/30/25 10:28 05/30/25 10:28 05/30/25 10:28 05/30/25 10:28 05/30/25 10:28
Last Documented Vital Signs
Temp Pulse Resp BP Pulse Ox
97.9 F 92 16 106/74 95
05/30/25 10:28 05/30/25 10:28 05/30/25 10:28 05/30/25 10:28 05/30/25 10:53
MDM/Problems Addressed
Differential Diagnosis Includes:
Patient is a 70-year-old male with chronic ureteric retention requiring Díaz catheter presenting to the emergency department with suprapubic pain. On arrival vitals unremarkable and exam is reassuring. He does have free-flowing urine in his
catheter bag. Concern for UTI given the pain versus bladder spasm from the Díaz irritation. Will check urinalysis. Will also obtain bladder scan to make sure there is no obstruction that caused the suprapubic pain though less likely as the pain
is now improved.
*Pulse Oximetry
SaO2: 95
Oxygen Mode of Delivery: Room air
Patient hypoxic: no
*Critical Care Note
Total Time (30-74mins, 75-104mins- exclusive of procedures): Not Applicable
Update Note
Update Note:
Urine does appear infected. Did offer patient's son the option of starting antibiotics now versus waiting for culture. Patient opted to start antibiotics. Will call if culture show anything different. Will discharge at this time.
ED Attending Note
-
Portions of this chart may have been created with voice recognition software.� Occasional wrong word or��sound alike� substitutions may have occurred due to the inherent limitations of voice recognition software.
Discharge Plan
Departure
Patient Disposition: Home (Routine Discharge)
Date of Disposition: 05/30/25
Time of Disposition: 11:41
Patient with high blood pressure during this ER visit?: No
Discharge Problem:
Acute UTI
Instructions: How to Care for Your Díaz Catheter, Male
Prescriptions:
New
cephalexin 500 mg capsule
500 mg PO QID 7 Days Qty: 28 0RF
No Action
atorvastatin 80 mg tablet
80 mg PO HS
nitroglycerin 0.3 mg tablet, sublingual
0.3 mg sublingual [id number] PRN (Reason: chest pain)
levothyroxine 25 mcg tablet
25 mcg PO DAILY
tamsulosin 0.4 mg capsule
0.4 mg PO HS
ezetimibe 10 mg tablet
10 mg PO DAILY
nifedipine 30 mg Tablet Extended Release
30 mg PO DAILY Qty: 30 0RF
carvedilol 25 mg tablet
25 mg PO BID Qty: 60 0RF
cephalexin 500 mg capsule
500 mg PO QID 10 Days Qty: 40 0RF
Referrals:
Miguel Carmona MD [Family Provider]
Activity Restrictions/Additional Instructions:
Thank You for choosing [facility].
It was a pleasure meeting you and taking part in your care. We hope for your continued healing and wellness.
You were seen in the Emergency Department today for urinary problems. While you were here we performed a urinalysis which did not appear infected. We did start you on antibiotics
We would like for you to follow up with your primary care physician for further evaluation. If you experience fever, worsening of your symptoms, or develop any other new or concerning symptoms, please return to the Emergency Department immediately.
Please see the attached sheet for additional information.
Interventions
Interventions:
*Risk Screen - Suicide Last Done: 05/30/25 10:58
*General Assessment Last Done: 05/30/25 10:58
*Neglect/Abuse Screening Last Done: 05/30/25 10:58
*ED- Fall Risk Assessment Last Done: 05/30/25 10:58
*ED COVID-19 Vaccine History Last Done: 05/30/25 10:58
*ED Influenza Vaccine History Last Done: 05/30/25 10:58
ED-Male Genitourinary Assessment Last Done: 05/30/25 10:58
Discharge Date and Time
Print Language: GUATEMALAN
[2025-05-30 10:58] VITALS: BMI 28.4
[2025-05-30 11:18] LABS: Urine Character Slightly Cloudy (Clear)
[2025-05-30 11:31] LABS: Urine White Cell 16-20 /HPF (0-5)
== END 2025-05-30 12:00 | disposition home or self-care (01) ==
LOC: EMR 10:26
PROVIDERS: EMERGENCY PHYSICIAN Student in an Organized Health Care Education/Training Program; FAMILY PHYSICIAN Internal Medicine
DX: N39.0 Urinary tract infection, site not specified (principal); I10 Essential (primary) hypertension; Z86.73 Personal history of transient ischemic attack (TIA), and cerebral infarction without residual deficits; Z96.0 Presence of urogenital implants
CPT/HCPCS: 99283; 81003; 81015; 87086

== ENCOUNTER 2025-06-24 02:16 | Emergency (ER) | payer OTHER, SELFPAY ==
[2025-06-24 02:18] VITALS: BP 201/123
--- NOTE | 2025-06-24 05:08 | ED.GENMED ---
History of Present Illness
General
Chief Complaint: Catheter/Tube Problem
Source: patient and family (Son who is at bedside)
Time Seen by Provider: 06/24/25 05:07
History of Present Illness
History of Present Illness:
This is a 70-year-old gentleman who presents to the ED accompanied by his son with concern for blocked Díaz catheter. He has chronic indwelling Díaz catheter. Routine Díaz catheter change at urologist office perhaps a week ago.
He complains of some suprapubic discomfort and urinary urge. He has not had a fever.
Previous ED visit for similar complaint May 30, 2025.
Nursing staff attempted to flush the Díaz catheter without success thus Díaz catheter changed by nursing staff without difficulty.
Catheter now draining clear pale yellow urine.
After catheter change patient reports complete relief of suprapubic discomfort and urinary urge.
Eager to be discharged to home.
Past History
Past History
ED Past Medical History: CVA, HTN, Hypercholesterolemia, Hypothyroidism and Other (Chronic urinary retention requiring chronic indwelling Díaz catheter)
ED Past Surgical History: None
Social History
Tobacco: Non-smoker
Alcohol: None
Drug: None
Personal:
Living: with family
Employment: Retired
Family History
Family History: Other (Noncontributory)
Phy Exam
Physical Exam
Physical Exam:
GENERAL: Alert , in no apparent distress
EYE: anicteric
NECK: Supple, nontender
ENT: oral mucosa is moist.
CARDIAC: Regular rate and rhythm. no murmur.
LUNGS: Clear breath sounds bilaterally, no acute respiratory distress, no wheezes/rales/rhonchi
ABDOMEN: Soft, nondistended, without focal tenderness, Díaz catheter draining pale clear yellow urine.
NEUROLOGICAL: Alert and oriented x3,, Moving all extremities.
SKIN: Warm and dry, normal color, skin intact. No rash.
MUSCULOSKELETAL: No C/C/E. peripheral pulses are full and equal b/l. No palpable tenderness.
PSYCH: Normal and appropriate interaction.
Course
Vital Signs
Initial and Last Documented VS:
Initial Vital Signs
Temp Pulse Resp BP Pulse Ox
97.2 F 104 20 201/123 97
06/24/25 02:18 06/24/25 02:18 06/24/25 02:18 06/24/25 02:18 06/24/25 02:18
Last Documented Vital Signs
Temp Pulse Resp BP Pulse Ox
97.2 F 104 20 201/123 97
06/24/25 02:18 06/24/25 02:18 06/24/25 02:18 06/24/25 02:18 06/24/25 02:18
MDM/Problems Addressed
Differential Diagnosis Includes:
Blocked Díaz catheter
Concern for recurrent/catheter associated UTI
MDM/Problems Addressed:
Blocked Díaz catheter
Díaz catheter changed by nursing staff without difficulty. Catheter is now draining clear pale yellow urine.
He has not had a fever. Abdomen is soft without appreciable tenderness.
At this point no indication to check urinalysis. Nothing to suggest UTI/catheter associated UTI.
Will discharge to home with recommendations to follow-up with urologist for further care.
Chronic conditions affecting care:
Chronic urinary retention requiring chronic indwelling Díaz catheter
Chronic conditions affecting care: Neurological disorder
*Pulse Oximetry
SaO2: 97
Oxygen Mode of Delivery: Room air
Patient hypoxic: no
*Critical Care Note
Total Time (30-74mins, 75-104mins- exclusive of procedures): Not Applicable
ED Attending Note
-
Portions of this chart may have been created with voice recognition software.� Occasional wrong word or��sound alike� substitutions may have occurred due to the inherent limitations of voice recognition software.
Discharge Plan
Departure
Patient Disposition: Home (Routine Discharge)
Date of Disposition: 06/24/25
Time of Disposition: 05:09
Patient with high blood pressure during this ER visit?: No
Condition: Good
Discharge Problem:
Complication, blocked Díaz catheter
Instructions: How to Care for Your Díaz Catheter, Male
Prescriptions:
No Action
atorvastatin 80 mg tablet
80 mg PO HS
nitroglycerin 0.3 mg tablet, sublingual
0.3 mg sublingual [id number] PRN (Reason: chest pain)
levothyroxine 25 mcg tablet
25 mcg PO DAILY
tamsulosin 0.4 mg capsule
0.4 mg PO HS
ezetimibe 10 mg tablet
10 mg PO DAILY
nifedipine 30 mg Tablet Extended Release
30 mg PO DAILY Qty: 30 0RF
carvedilol 25 mg tablet
25 mg PO BID Qty: 60 0RF
cephalexin 500 mg capsule
500 mg PO QID 10 Days Qty: 40 0RF
cephalexin 500 mg capsule
500 mg PO QID 7 Days Qty: 28 0RF
Referrals:
Miguel Carmona MD [Family Provider] - Keep scheduled appt
Interventions
Interventions:
*Risk Screen - Suicide Last Done: 06/24/25 02:18
*General Assessment Last Done: 06/24/25 03:05
*Neglect/Abuse Screening Last Done: 06/24/25 03:05
*ED COVID-19 Vaccine History Last Done: 06/24/25 03:05
*ED Influenza Vaccine History Last Done: 06/24/25 03:05
TT-Beyyma-Lsuzdlsbgh Assessment Last Done: 06/24/25 03:05
ED-Male Genitourinary Assessment Last Done: 06/24/25 03:05
Discharge Date and Time
Print Language: SINHALA
== END 2025-06-24 05:36 | disposition home or self-care (01) ==
LOC: EMR 02:16
PROVIDERS: EMERGENCY PHYSICIAN Emergency Medicine; FAMILY PHYSICIAN Internal Medicine
DX: T83.091A Other mechanical complication of indwelling urethral catheter, initial encounter (principal); Y73.8 Miscellaneous gastroenterology and urology devices associated with adverse incidents, not elsewhere classified; I10 Essential (primary) hypertension; E78.00 Pure hypercholesterolemia, unspecified; E03.9 Hypothyroidism, unspecified; Z86.73 Personal history of transient ischemic attack (TIA), and cerebral infarction without residual deficits
CPT/HCPCS: 99282; 51702